=== PATIENT | female | born 1995 | race Caucasian/White ===

== ENCOUNTER 2023-01-03 11:02 | Outpatient (CLI) | payer OTHER, SELFPAY ==
--- NOTE | 2023-01-03 11:15 | CRLHL7_ITS ---
For Patients: As a result of the Cures Act, medical imaging exams and procedure reports are released immediately into your electronic medical record. You may view this report before your referring provider. If you have questions, please contact your health care provider. LEFT BREAST ULTRASOUND CLINICAL HISTORY: LEFT breast bump. COMPARISON: None. TECHNIQUE: Real-time ultrasound imaging of LEFT breast with imaging documentation. FINDINGS: Targeted sonogram LEFT breast 2 o`clock 5 cm from the nipple performed. In this location there is a macrolobular solid hypoechoic nodule measuring 3.4 x 2.0 x 2.8 cm. IMPRESSION: 3.4 cm solid nodule LEFT breast 2 o`clock 5 cm from the nipple, probable fibroadenoma, exclude phyllodes. RECOMMENDATIONS: Ultrasound-guided core needle biopsy. Results and recommendations were discussed with the patient at the time of the exam. BI-RADS Category 4: Suspicious A lay language report of this examination will be provided to the patient. Dictated by Royal Graf MD @ 01/03/2023 11:33:41 AM jj/Dictated by: Royal Graf MD @ 01/03/2023 11:33:00 AM (Electronically Signed)
== END 2023-01-03 11:03 | disposition home or self-care (01) ==
LOC: US 11:03
PROVIDERS: Visit Provider Physician Assistant
DX: N63.20 Unspecified lump in the left breast, unspecified quadrant (principal)
CPT/HCPCS: 76642